=== PATIENT | female | born 1975 | race Caucasian/White ===

== ENCOUNTER 2019-04-02 02:30 | Emergency (ER) | payer OTHER ==
[~2019-04-02] VITALS: Ht 160 cm; Wt 72.6 kg
[~2019-04-02 02:30] MED LIST: FLOMAX0.4 MG PO; PERCOCET PO; ZOFRAN ODT4 MG PO
[2019-04-02 03:14] LABS: ABSOLUTE BASOPHILS 0.1 thou/uL (0.0-0.2); ABSOLUTE EOSINOPHILS 0.3 thou/uL (0.0-0.7); ABSOLUTE LYMPHOCYTES 3.3 thou/uL (0.8-5.3); ABSOLUTE MONOCYTES 0.8 thou/uL (0.0-1.2); ABSOLUTE NEUTROPHILS 9.6 thou/uL (1.6-8.1); BASOPHILS 0.7 %; EOSINOPHILS 2.2 %; HEMATOCRIT 43.7 % (37.0-47.0); HEMOGLOBIN 14.6 gm/dL (12.0-15.0); LYMPHOCYTES 23.4 %; MCH 28.4 pg (26.0-34.0); MCHC 33.5 g/dL (28.0-37.0); MCV 84.8 fL (80.0-100.0); MONOCYTES 5.5 %; MPV 8.8 fl. (7.2-11.1); NUCLEATED RBCS 0 /100WBC; PLATELET COUNT* 277 thou/uL (150-400); POLYS 68.2 %; RBC 5.15 mil/uL (4.20-5.00)
[2019-04-02 03:21] LABS: CALCIUM 8.9 mg/dL (8.5-10.1); CREATININE 0.8 mg/dL (0.6-1.3); POTASSIUM 3.7 mmol/L (3.5-5.1)
[2019-04-02 03:26] LABS: TOTAL BILIRUBIN 0.4 mg/dL (<0.1-1.0); TOTAL PROTEIN 8.1 g/dL (6.4-8.2)
[2019-04-02] MEDS ORDERED: VALIUM5 MG PO (04:39)
[2019-04-02] MEDS ORDERED: ULTRAM 50MG TAB50 MG PO (04:39)
[2019-04-02 04:45] VITALS: BP 145/78
== END 2019-04-02 04:45 | disposition home or self-care (01) ==
LOC: M.ERS 02:30
PROVIDERS: Personal Emergency Response Attendant
DX: S13.4XXA Sprain of ligaments of cervical spine, initial encounter (principal); F17.200 Nicotine dependence, unspecified, uncomplicated; Z88.5 Allergy status to narcotic agent; Z88.6 Allergy status to analgesic agent; V43.02XA Car driver injured in collision with other type car in nontraffic accident, initial encounter; Y93.89 Activity, other specified; Y92.89 Other specified places as the place of occurrence of the external cause; Y99.8 Other external cause status

== ENCOUNTER 2019-04-07 22:22 | Emergency (ER) | payer OTHER ==
[~2019-04-07] VITALS: Ht 160 cm; Wt 72.6 kg
[~2019-04-07 22:22] MED LIST changes: +ULTRAM 50MG TAB50 MG PO; +VALIUM5 MG PO
[2019-04-07] MEDS ORDERED: MEDROLDOSEPACK PO (22:51)
[2019-04-07] MEDS ORDERED: NORCO 5-325 TA1 EACH PO (22:51)
[2019-04-07 23:46] VITALS: BP 141/72
== END 2019-04-07 23:47 | disposition home or self-care (01) ==
LOC: M.ERS 22:22
DX: M54.9 Dorsalgia, unspecified (principal); F17.210 Nicotine dependence, cigarettes, uncomplicated; Z88.5 Allergy status to narcotic agent; Z88.6 Allergy status to analgesic agent